=== PATIENT | male | born 1950 | race Caucasian/White ===

== ENCOUNTER 2017-04-26 10:48 | Day surgery (SDC) | payer MEDICARE, OTHER ==
[~2017-04-26] VITALS: Ht 167.6 cm; Wt 93.4 kg
[~2017-04-26 10:48] MED LIST: FENOFIBRATE160 MG PO; GLIPIZIDE10 MG PO; HYDROCODON-ACE1 EA10 PO; HYDROCODON-ACE1 EAC8 PO; IBUPROFEN800 MG PO; LISINOPRIL-HCT1 EACH PO; METFORMIN HCL1000 MG PO; METHYLPREDNISOLO4 M1 PO; PHENERGAN25 MG PO; PROTONIX40 MG PO
--- NOTE | 2017-04-26 12:32 | NUR ---
04/26/17 1232 [place] 1204 RESP EVEN AND UNLABORED. PT AWAKE AND TALKING. 1214 O2 REMOVED, O2 SAT 100%. 1218 MD AT BEDSIDE. 1230 PT GETTING DRESSED DENINES ANY PROBLEMS AT THIS TIME.
--- NOTE | 2017-04-27 14:18 | OR ---
[facility] [address], [place] [address] Signed DATE OF OPERATION: 04/26/2017 SURGEON: Nguyen Ovalles MD PREOPERATIVE DIAGNOSES: 1. Persistent upper abdominal pain. Known long-standing chronic recurrent pancreatitis. Recent CT scan showing no evidence of pancreatitis or pseudocyst. 2. 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 POSTOPERATIVE DIAGNOSES: 1. Poor flap valve, but no evidence of esophagitis. 2. Mild duodenitis. PROCEDURE: Esophagogastroduodenoscopy with biopsy. ANESTHESIA: Intravenous sedation, fentanyl 100 mcg, Versed 4 mg. INDICATION: This 66-year-old white man is a patient of Dr. Mena and here for consideration of upper endoscopy for upper abdominal pain, lasting a few weeks. It is noted that the patient has had chronic recurrent pancreatitis for a number of years. He underwent cholecystectomy about [address] Deacon Spears. He has no associated dysphagia, but does have central posterior thoracic and lower back pain. He takes Motrin from time to time for his pain. A CT scan was performed to assess for pseudocyst or other pancreatic sequela of chronic pancreatitis. This was normal except for an incidental finding of the superior mesenteric artery having occlusion at its origin with reconstitution about 2.5 cm from the occlusion. This will of course imply good collateral flow to the visceral blood vessels. His pain is variably associated with meals, certainly not every meal. His current medications could account for gastritis including use of ibuprofen. I have recommended Prilosec to be re-initiated once again and he does think that he feels better since that is the case. The medication was initiated on the 13 of April. He is admitted to undergo upper endoscopy to assess for ulcer, neoplasm, or other problem for his upper abdominal pain understanding the risks of bleeding, infection, and perforation. FINDINGS: Esophageal mucosa was normal. The GE junction showed a poor flap valve, but no sign of Electronically Signed By: NGUYEN OVALLES MD 04/27/17 1418 PATIENT NAME: DA KIRBY OPERATIVE REPORT DATE OF : 46 PHYSICIAN: NGUYEN OVALLES MD REPORT #: [id number] REPORT IS CONFIDENTIAL AND NOT TO BE RELEASED WITHOUT AUTHORIZATION [facility] [address], [place] [address] Signed Casiano's epithelium of the distal esophagus. Stomach was essentially normal. CLOtest was negative. The pylorus was normal. The duodenum did have mild duodenitis of the bulbar portion. The second and third portions were normal. CLOtest was negative 20 minutes post procedure. DESCRIPTION OF PROCEDURE: The patient was brought to the endoscopy suite, given topical Hurricaine spray hypopharyngeal anesthesia and placed in lateral decubitus position. A bite block was placed. Intravenous sedation was administered and after satisfactory level of sedation, an Olympus video upper endoscope passed in the hypopharynx. The vocal cords and hypopharynx appeared normal. The scope was advanced to the esophagus throughout its length and it was normal with no sign of Casiano's epithelium, stricture, neoplasm, or other problem. Scope was advanced into the stomach, which was insufflated with air. There was no sign of bilious fluid. The rugal folds were normal. The antrum was normal as was the pylorus. The scope was passed through the pylorus into the duodenum. There was some chronic duodenitis. Narrow band imaging was used as well. Scope was advanced to the second and third portions, which appeared more normal. Biopsies were taken of those areas and the scope was withdrawn and then biopsies taken of the bulbar portion. The scope was withdrawn to the antrum, where biopsies were obtained for both SANDRINE and pathologic testing. Retroflexed view was undertaken and withdrawal of scope showed a rather poor flap valve. No sign of large hiatal hernia. There was no sign of proximal gastric pathology. The scope was straightened, withdrawn, and distal esophageal biopsies were obtained and ultimately mid esophageal biopsies. Scope was removed and the patient was taken to the recovery room in good condition. CONCLUDING DIAGNOSIS: Mild duodenitis. Improved on PPI medication currently. CT scan showing no sign of pseudocyst or active pancreatitis. Significance of occluded SMA origin uncertain particularly as there is apparently good reconstitution from collaterals beyond this level. PLAN: He will return to see me in approximately 4 to 6 weeks. We will review his progress and his pathology report. MD OLAYINKA [place]/TIKA Electronically Signed By: NGUYEN OVALLES MD 04/27/17 1418 PATIENT NAME: DA KIRBY OPERATIVE REPORT DATE OF : 46 PHYSICIAN: NGUYEN OVALLES MD REPORT #: [id number] REPORT IS CONFIDENTIAL AND NOT TO BE RELEASED WITHOUT AUTHORIZATION [address] [address] Signed /[id number] cc: Kareem Mena MD Electronically Signed By: NGUYEN OVALLES MD 04/27/17 1418 PATIENT NAME: DA KIRBY PITO OPERATIVE REPORT DATE OF : 46 PHYSICIAN: NGUYEN OVALLES MD REPORT #: [id number] REPORT IS CONFIDENTIAL AND NOT TO BE RELEASED WITHOUT AUTHORIZATION
== END 2017-04-26 12:40 | disposition home or self-care (01) ==
LOC: DS 10:48 → OPS 10:48 → DS 14:00 → OPS 14:00
PROVIDERS: Surgery
PROC: 0DB78ZX Excision of Stomach, Pylorus, Via Natural or Artificial Opening Endoscopic, Diagnostic (ICD-10-PCS; 2017-04-26)
PROC: 0DB28ZX Excision of Middle Esophagus, Via Natural or Artificial Opening Endoscopic, Diagnostic (ICD-10-PCS; 2017-04-26)
PROC: 0DB38ZX Excision of Lower Esophagus, Via Natural or Artificial Opening Endoscopic, Diagnostic (ICD-10-PCS; 2017-04-26)
PROC: 0DB98ZX Excision of Duodenum, Via Natural or Artificial Opening Endoscopic, Diagnostic (ICD-10-PCS; principal; 2017-04-26 14:00)
DX: K29.50 Unspecified chronic gastritis without bleeding (principal); K29.80 Duodenitis without bleeding; E11.9 Type 2 diabetes mellitus without complications; I10 Essential (primary) hypertension; G47.30 Sleep apnea, unspecified; Z90.49 Acquired absence of other specified parts of digestive tract; Z98.890 Other specified postprocedural states
CPT/HCPCS: 88305; G0500; J2250; J3010; J7120